=== PATIENT | female | born 1975 | race Caucasian/White ===

== ENCOUNTER 2016-11-28 22:41 | Emergency (ER) | payer OTHER ==
[2016-11-28 22:52] VITALS: BP 136/75
--- NOTE | 2016-11-29 00:32 | EDM.PDOC ---
ED HPI GENERAL MEDICAL PROBLEM - General Chief Complaint: [employer] Problem Stated Complaint: UTERINE INFECTION/BLEEDING/CLOTS Time Seen by Provider: 11/29/16 00:08 Source of Information: Reports: Patient, RN Notes Reviewed History Limitations: Reports: No Limitations - History of Present Illness INITIAL COMMENTS - FREE TEXT/NARRATIVE: The patient states that she has been experiencing suprapubic pain for the past week, since , 11/21/2016. She did not have a fever, but she states that she was passing a clear vaginal discharge. She was seen at an emergency department in [place] on 11/22/2016, where a CT scan of the abdomen and pelvis was performed, apparently finding some fluid in her bilateral fallopian tubes (please note that the patient has undergone a bilateral tubal ligation). She was diagnosed with bilateral salpingitis, and started on oral Levaquin and Flagyl. An STD panel returned negative. The patient states that her symptoms had not improved, therefore her PCP, Dr. Whitehead, ordered a Rocephin injection, which she was given today. The patient then developed heavy vaginal bleeding, including passing several large clots, around 22:00 tonight. She states that she went through 4 tampons in less than an hour, although she now has just a trickle. She states that she was lightheaded. The patient's LMP was approximately 11/08/2016, which included heavy bleeding, cramps, and passing clots, which is normal for her. She states that what is different this time is the size of the clots. The patient is sexually active. She is . Right Lower Abdomen Pain Score (Numeric/FACES): 7 - Related Data Allergies Allergy/AdvReac Type Severity Reaction Status Date / Time No Known Allergies Allergy Verified 11/28/16 22:47 Home Meds: Home Meds Flagyl. 11/28/16 [History] Levaquin. 11/28/16 [History] Tramadol. 11/28/16 [History] Past Medical History [employer] History: Reports: Other (See Below) (Ovarian cysts) Psychiatric History: Reports: Anxiety, Depression - Past Surgical History HEENT Surgical History: Reports: Oral Surgery ([place] teeth extraction) GI Surgical History: Reports: Cholecystectomy Female Surgical History: Reports: Tubal Ligation Social & Family History - Family History Family Medical History: Noncontributory - Tobacco Use Smoking Status *Q: Former Smoker Years of Tobacco use: 25 Packs/Tins Daily: 2 Month Tobacco Last Used: Quit August 2016 - Alcohol Use Alcohol Use History: Yes Days Per Week of Alcohol Use: 0 Alcohol Use Frequency: Socially - Recreational Drug Use Recreational Drug Use: No - Living Situation & Occupation Living situation: Reports: , Alone Occupation: Employed ([employer]) ED ROS GENERAL - Review of Systems Review Of Systems: See Below Constitutional: Reports: No Symptoms HEENT: Reports: No Symptoms Respiratory: Reports: No Symptoms Cardiovascular: Reports: No Symptoms Endocrine: Reports: No Symptoms GI/Abdominal: Reports: Constipation (chronic) : Reports: No Symptoms Musculoskeletal: Reports: No Symptoms Skin: Reports: No Symptoms Neurological: Reports: No Symptoms Psychiatric: Reports: No Symptoms Hematologic/Lymphatic: Reports: No Symptoms Immunologic: Reports: No Symptoms ED EXAM, GENERAL - Physical Exam Exam: See Below Exam Limited By: No Limitations General Appearance: Alert, WD/WN, No Apparent Distress Eye Exam: Bilateral Eye: Normal Inspection Ears: Normal External Exam, Hearing Grossly Normal Nose: Normal Inspection, No Blood Throat/Mouth: Normal Inspection, Normal Lips, Normal Voice, No Airway Compromise Head: Atraumatic, Normocephalic Neck: Normal Inspection, Full Range of Motion Respiratory/Chest: No Respiratory Distress, Lungs Clear, Normal Breath Sounds, No Accessory Muscle Use Cardiovascular: Normal Peripheral Pulses, Regular Rate, Rhythm, No Gallop, No JVD, No Murmur, No Rub GI/Abdominal: Normal Bowel Sounds, Soft, No Organomegaly, No Distention, No Abnormal Bruit, No Mass, Tender (Suprapubic region only. Nontender elsewhere.) Back Exam: Normal Inspection, Full Range of Motion, NT Extremities: Normal Inspection, Normal Range of Motion, No Pedal Edema, Normal Capillary Refill Neurological: Alert, Oriented, Normal Cognition, No Motor/Sensory Deficits Psychiatric: Normal Affect Skin Exam: Warm, Dry, Intact, Normal Color, No Rash Course - Vital Signs Last Recorded V/S: Last Vital Signs Temp 36.4 C 11/28/16 22:49 Pulse 82 11/28/16 22:49 Resp BP 136/75 11/28/16 22:49 Pulse Ox 99 11/28/16 22:49 Orthostatic Blood Pressure [ 120/47 Standing] Orthostatic Blood Pressure [ 112/69 Sitting] Orthostatic Blood Pressure [ 101/56 Supine] - Orders/Labs/Meds Orders: Active Orders 24 hr Category Date Time Status Orthostatic Vital Signs [RC] STAT Care 11/29/16 00:21 Active Labs: Laboratory Tests 11/29/16 11/29/16 Range/Units 00:47 00:47 WBC 8.02 (3.98-10.04) K/mm3 RBC 3.83 L (3.98-5.22) M/mm3 Hgb 11.7 (11.2-15.7) gm/L Hct 34.9 (34.1-44.9) % MCV 91.1 (79.4-94.8) fl MCH 30.5 (25.6-32.2) pg MCHC 33.5 (32.2-35.5) g/dl RDW Std Deviation 41.6 (36.4-46.3) fL Plt Count 157 L (182-369) K/mm3 MPV 11.9 (9.4-12.3) fl Neutrophils % (Manual) 57 (40-60) % Band Neutrophils % 0 (0-10) % Lymphocytes % (Manual) 32 (20-40) % Atypical Lymphs % 0 % Monocytes % (Manual) 5 (2-10) % Eosinophils % (Manual) 6 H (0.7-5.8) % Basophils % (Manual) 0 L (0.1-1.2) Platelet Estimate Adequate RBC Morph Comment Normal HCG, Quant < 1.0 mIU/mL - Re-Assessments/Exams Free Text/Narrative Re-Assessment/Exam: 11/29/16 00:32 The patient is not orthostatic. 11/29/16 02:08 Test results discussed with the patient. Her CBC is normal, and she is not orthostatic, indicating that she has not bled to an excessive amount, despite the apparent visible quantity. Her quantitative hCG is negative, indicating no recent . As best I can tell, the patient is experiencing an unusually heavy menstrual period. The patient became angry when I told her these results. I gather that she does not believe that she is experiencing a menstrual period. She stated that she has spoken to her PCP, Dr. Batista, and wanted the test results faxed to her ( Dr. Batista is not on staff at this facility, and we do not have a fax number for her). She asked if I had spoken to a [employer], which I had not. She stated "That's all right, I've been dealing with this for 2 weeks. [address] have Dr. Del Castillo take care of it." Case then discussed with Dr. Sanders at 02:15. He agrees that the patient is likely experiencing a menstrual period. He suspects that the patient may be developing irregular ovulations, which can lead to abnormal menstrual bleeding. He is recommending that the patient follow-up with her L[employer] Tripper, or in his office, to discuss treatment options, which can include hormonal treatment or an IUD. The above was explained to the patient, who still appears to be very angry. She stated that she has had irregular periods her entire life, and something is different. I explained that her lab results will be included in her discharge paperwork, and she can then follow-up with her own L[employer] Tripper. Departure - Departure Time of Disposition: 02:31 Disposition: Home, Self-Care 01 Condition: Good Clinical Impression: Abnormal menstrual periods - Discharge Information Referrals: PCP,Not In Area [Ordering Only Provider] - Celso Sanders MD [Physician] - Forms: ED Department Discharge Additional Instructions: You were seen in the emergency room for passing large clots tonight, along with lower abdominal pain for the past week. Workup in the ER included a CBC, a quantitative hCG, and positional blood pressure checks. Your entire workup was normal. You are not anemic, you do not have an elevated WBC count to suggest an infection, you have not been recently , and your blood pressure maintained itself between lying and standing, indicating no significant blood volume drop. The case was discussed with the Lumber Tripper Dr. Sanders. He believes that your symptoms are due to a changing ovulatory cycle, leading to abnormal bleeding. He stated that there are treatment options for this, including hormonal therapy or an IUD. You may follow-up with Dr. Sanders in the clinic, or your own [employer]pper, at the next available appointment. If any other problems, please do not hesitate to return to the ER. - My Orders Last 24 Hours: My Active Orders 11/29/16 00:21 Orthostatic Vital Signs [RC] STAT - Assessment/Plan Last 24 Hours: My Active Orders 11/29/16 00:21 Orthostatic Vital Signs [RC] STAT
== END 2016-11-29 02:40 | disposition home or self-care (01) ==
LOC: JD.ED 22:41
DX: N92.6 Irregular menstruation, unspecified (principal); Z87.891 Personal history of nicotine dependence
CPT/HCPCS: 36415; 84702; 85025; 99283; 99284